=== PATIENT | male | born 1945 | race Caucasian/White ===

== ENCOUNTER → 2020-12-31 00:25 | Outpatient (CLI) | payer MEDICARE, SELFPAY ==
[2020-12-31 18:31] LABS: SARS-CoV-2 RNA PCR Negative
== END ==
PROVIDERS: PCP Internal Medicine; Visit Provider Internal Medicine Gastroenterology
DX: Z01.812 Encounter for preprocedural laboratory examination (principal); Z20.822 Contact with and (suspected) exposure to COVID-19
CPT/HCPCS: C9803; U0003; U0005

== ENCOUNTER 2021-01-03 04:38 | Day surgery (SDC) | payer MEDICARE, SELFPAY ==
[2020-12-24 10:42] VITALS: BMI 31.1
[2021-01-03 08:45] VITALS: BP 136/80; PULSE 68; RESP 20; TEMP 35.9; O2SAT 98; BMI 29.7
--- NOTE | 2021-01-03 08:52 | WPDANESEPPF ---
Anes - Initial Pre Proc Eval Procedure: Operation Date: 01/03/21 10:00 Proposed Procedures p Screening Colonoscopy - Edgar Jones MD Date/Time: 01/03/21 08:52 Surgeon: Edgar Jones MD Pre Op Diagnosis: neoplasm screening Patient Data Age: 75 Gender: M Height: 5 ft 7 in Weight: 86.3 kg Last Vital Signs Temp 96.6 F L 01/03/21 08:45 Pulse 68 01/03/21 08:45 Resp 20 01/03/21 08:45 BP 136/80 01/03/21 08:45 Pulse Ox 98 01/03/21 08:45 Allergies Allergy/AdvReac Type Severity Reaction Status Date / Time No Known Allergies Allergy Verified 12/24/20 10:42 Home Medications Medication Instructions Recorded Confirmed Type docusate sodium 100 mg capsule 100 mg PO BID 07/22/20 12/24/20 History glucosamine HCl 500 mg tablet 600 mg PO BID tablet 07/22/20 12/24/20 History atorvastatin 10 mg tablet 10 mg PO DAILY #90 tablet 07/25/20 12/24/20 Rx levothyroxine 75 mcg tablet 75 mcg PO DAILY #90 tablet 07/25/20 12/24/20 Rx losartan 25 mg tablet 25 mg PO DAILY #90 tablet 07/25/20 12/24/20 Rx tamsulosin 0.4 mg capsule 0.4 mg PO DAILY #90 cap 07/29/20 12/24/20 Rx hydrocortisone-pramoxine 2.5 %-1 % 1 applic RECTAL QID PRN #30 g 12/18/20 12/24/20 Rx rectal cream Patient hx anesthesia problems: none Family hx anesthesia problems: none PMFSH Past Medical History Medical History (Updated 07/19/20 @ 12:08 by Haylee Funes) Benign prostatic hyperplasia with urinary hesitancy DM w/o complication type II, uncontrolled Essential hypertension Hemospermia Hesitancy of micturition Hyperlipemia Hypogonadism Hypothyroidism, acquired Incomplete tear of left rotator cuff Thrombocytopenia Vitamin D deficiency Surgical History Surgical History (Updated 07/19/20 @ 12:08 by Haylee Funes) History of shoulder surgery 10/2018 Family History Family History (Updated 09/08/18 @ 13:07 by DOCTOR UNKNOWN) Mother Family history of Alzheimer's disease Family history of malignant neoplasm Social History Social History Smoking status: Never smoker Alcohol intake: never Substance use: never Substance use type: does not use Living arrangements: with family Spiritual care concerns: No Anes - Eval Final PreProcedure Day of Procedure 01/03/21 08:52 Patient weight: overweight Heart: regular rate and rhythm Lungs: clear to auscultation Airway: Mallampati scale class II Neurological: alert and oriented Last oral intake: >/= 8 hours ASA classification: III Emergent: no Anesthetic plan: proceed Anesthesia type and monitoring: general GIVS and standard monitoring Informed Consent: The patient's anesthetic plan and its attendant risks and benefits were discussed with the patient/family/POA. Questions were solicited and answers provided to the satisfaction of the patient/family/POA.
[2021-01-03] MEDS: LACTATED RINGERS 1,000 ML 150 ML IV CONT (09:04)
--- NOTE | 2021-01-03 09:44 | PM.HPGS ---
History of Present Illness History of Present Illness Consent: Risks, benefits, and alternatives have been discussed and questions answered. Patient agrees to proceed with procedure. Chief complaint: neoplasm screening Narrative: Alo Yousif is a 75 year old male referred for colon cancer screening. He has recently noticed painful bowel movements. Taking stool softener has helped a bit. The pain has been present for about 3 weeks. Occasionally he will also see some blood on toilet tissue Review of Systems Review of Systems: All systems reviewed & are unremarkable except as noted in HPI and below PMFSH Past Medical History Medical History Benign prostatic hyperplasia with urinary hesitancy DM w/o complication type II, uncontrolled Essential hypertension Hemospermia Hesitancy of micturition Hyperlipemia Hypogonadism Hypothyroidism, acquired Incomplete tear of left rotator cuff Thrombocytopenia Vitamin D deficiency Surgical History Surgical History History of shoulder surgery 10/2018 Family History Family History Mother Family history of Alzheimer's disease Family history of malignant neoplasm Social History Social History Smoking status: Never smoker Alcohol intake: never Substance use: never Substance use type: does not use Living arrangements: with family Spiritual care concerns: No Meds Home Medications and Allergies Home Medications Medication Instructions Recorded Confirmed Type docusate sodium 100 mg capsule 100 mg PO BID 07/22/20 12/24/20 History glucosamine HCl 500 mg tablet 600 mg PO BID tablet 07/22/20 12/24/20 History atorvastatin 10 mg tablet 10 mg PO DAILY #90 tablet 07/25/20 12/24/20 Rx levothyroxine 75 mcg tablet 75 mcg PO DAILY #90 tablet 07/25/20 12/24/20 Rx losartan 25 mg tablet 25 mg PO DAILY #90 tablet 07/25/20 12/24/20 Rx tamsulosin 0.4 mg capsule 0.4 mg PO DAILY #90 cap 07/29/20 12/24/20 Rx hydrocortisone-pramoxine 2.5 %-1 % 1 applic RECTAL QID PRN #30 g 12/18/20 12/24/20 Rx rectal cream Allergies Allergy/AdvReac Type Severity Reaction Status Date / Time No Known Allergies Allergy Verified 12/24/20 10:42 Vital Signs Vital Signs - 24 hr 01/03/21 08:45 Temperature 35.9 C L Pulse Rate 68 Respiratory Rate 20 Blood Pressure 136/80 Pulse Oximetry 98 Exam Resp: Auscultation: clear to auscultation bilaterally Cardio: Rate: regular rate Rhythm: regular rhythm GI: GI Palp: Yes Soft to palpation and No Tenderness to palpation present (GI) Assessment and Plan Assessment and plan (1) Colon cancer screening: Code(s): Z12.11 - Encounter for screening for malignant neoplasm of colon Status: Acute Assessment and Plan: Colonoscopy with possible biopsy or polypectomy or cautery or injection of substances.
[2021-01-03 10:04] VITALS: BP 88/48; PULSE 69; RESP 17; O2SAT 96
[2021-01-03 10:14] VITALS: BP 98/51; PULSE 64; RESP 16; O2SAT 98
[2021-01-03 10:24] VITALS: BP 118/76; PULSE 56; RESP 15; O2SAT 98
== END 2021-01-03 10:40 | disposition home or self-care (01) ==
PROVIDERS: PCP Internal Medicine; Visit Provider Internal Medicine Gastroenterology
PROC: 0DJD8ZZ Inspection of Lower Intestinal Tract, Via Natural or Artificial Opening Endoscopic (ICD-10-PCS; CPT 45378; principal; 2021-01-03 10:00)
DX: Z12.11 Encounter for screening for malignant neoplasm of colon (principal); K64.8 Other hemorrhoids; N40.0 Benign prostatic hyperplasia without lower urinary tract symptoms; I10 Essential (primary) hypertension; D69.6 Thrombocytopenia, unspecified; E03.9 Hypothyroidism, unspecified; E55.9 Vitamin D deficiency, unspecified; E11.9 Type 2 diabetes mellitus without complications
CPT/HCPCS: G0121; C9803; J2001; J2704; J7120; U0003; U0005

== ENCOUNTER 2021-02-07 09:12 | Outpatient (CLI) | payer MEDICARE, SELFPAY ==
--- NOTE | ~2021-02-07 | US_ITS ---
EXAMINATION: US abdomen complete EXAM DATE: 02/07/2021 09:58 INDICATION: Thrombocytopenia. TECHNIQUE: Multiple grayscale and Doppler images of the complete abdomen were obtained (by a technolo gist who performed the scan) and subsequently reviewed. There is no prior study for comparison. FINDINGS: The abdominal aorta is normal in caliber. Visualized portion IVC is patent. The pancreatic head a nd body are normal in appearance. The pancreatic tail is not visualized. The liver has normal echogenicity and contour. There are no focal liver lesions identified. There is no evidence of intrahepatic biliary duct dilation. Portal venous flow was seen in the hepatopedal , normal direction and has normal Doppler waveform. Common bile duct measures 3 mm, which is normal. The gallbladder wall is normal in thickness, with ex pected amount of distention. No sonographic evidence of pericholecystic fluid. There are several ga llstones identified. Technologist performing exam reports patient did not demonstrate sonographic Mu rphy's sign. Please note that this sign is less reliable in patients who have received pain medicati on. Right kidney: There is normal contour and echogenicity. It measures 10.9 x 5.2 x 5.8 centimeters. T here are 2 anechoic regions consistent with cysts largest measuring 3.7 cm. There is no hydronephro sis. Left kidney: There is normal contour and echogenicity. It measures 11.7 x 6.7 x 5.6 centimeters. T here are no focal renal lesions identified. There is no hydronephrosis. The spleen measures 10.4 centimeters and is morphologically normal. IMPRESSION: 1. Cholelithiasis. 2. Normal spleen size. Reviewed, dictated and finalized at location B.
== END 2021-02-07 09:13 | disposition home or self-care (01) ==
PROVIDERS: PCP Internal Medicine; Visit Provider Internal Medicine Hematology & Oncology
DX: D69.59 Other secondary thrombocytopenia (principal); K80.20 Calculus of gallbladder without cholecystitis without obstruction
CPT/HCPCS: 76700

== ENCOUNTER 2021-03-27 12:40 | Outpatient (CLI) | payer MEDICARE, SELFPAY ==
--- NOTE | 2021-03-27 12:46 | ECG_ITS ---
Measurements Intervals Turner Rate: 67 P: 52 WI: 167 QRS: 0 QRSD: 94 T: 8 QT: 392 QTc: 416 Interpretive Statements SINUS RHYTHM BASELINE ARTIFACT- I, II, AVR NORMAL ECG Electronically Signed On 03-27-2021 13:00:37 CDT by Girma Ly D.O.
== END 2021-03-27 12:41 | disposition home or self-care (01) ==
LOC: ANHSURGERY 12:43
PROVIDERS: PCP Internal Medicine; Visit Provider Surgery
DX: Z01.818 Encounter for other preprocedural examination (principal); E78.00 Pure hypercholesterolemia, unspecified
CPT/HCPCS: 93005

== ENCOUNTER 2021-04-01 01:47 | Day surgery (SDC) | payer MEDICARE, SELFPAY ==
[2021-03-26 12:25] VITALS: BMI 29.7
[2021-04-01] VITALS (7 sets, daily range): BP systolic 118–144; BP diastolic 65–72; PULSE 64–99; RESP 10–18; TEMP 36.3–36.6; O2SAT 98–100
[2021-04-01] MEDS: ACETAMINOPHEN 500 MG TABLET 1000 MG PO (10:19)
[2021-04-01] MEDS: LACTATED RINGERS 1,000 ML 30 ML IV CONT (10:19)
[2021-04-01] MEDS: KETOROLAC 15 MG/ML VIAL (*BKC) IV PUSH (10:19)
--- NOTE | 2021-04-01 11:22 | WPDANESEPPF ---
Anes - Initial Pre Proc Eval Procedure: Operation Date: 04/01/21 12:00 Proposed Procedures p Rectal/Anal Exam Under Anesthesia, Possible Lateral Internal Sphincterotomy - Corwin Agee MD Date/Time: 04/01/21 11:22 Surgeon: Corwin Agee MD Pre Op Diagnosis: posterior anal fissure Patient Data Age: 75 Gender: M Height: 1.7 m Weight: 85.1 kg Last Vital Signs Temp 97.9 F 04/01/21 10:45 Pulse 70 04/01/21 10:45 Resp 16 04/01/21 10:45 BP 144/72 H 04/01/21 10:45 Pulse Ox 100 04/01/21 10:45 Allergies Allergy/AdvReac Type Severity Reaction Status Date / Time No Known Allergies Allergy Verified 04/01/21 10:43 Home Medications Medication Instructions Recorded Confirmed Type levothyroxine 75 mcg tablet 75 mcg PO DAILY #90 tablet 07/25/20 04/01/21 Rx atorvastatin 10 mg tablet 10 mg PO DAILY #90 tablet 01/24/21 04/01/21 Rx losartan 25 mg tablet 25 mg PO DAILY #90 tablet 01/24/21 04/01/21 Rx tamsulosin 0.4 mg capsule 0.4 mg PO DAILY #90 cap 01/24/21 04/01/21 Rx cholecalciferol (vitamin D3) 50 50 mcg PO DAILY 03/12/21 04/01/21 History mcg (2,000 unit) capsule docusate sodium 100 mg capsule 250 mg PO BID cap 03/12/21 04/01/21 History glucosamine HCl 500 mg tablet 750 mg PO BID tablet 03/12/21 04/01/21 History mecobalamin (vitamin B12) 1,000 1,000 mcg PO DAILY 03/12/21 04/01/21 History mcg chewable tablet omega-3 fatty acids 1,000 mg 1,000 mg PO DAILY 03/12/21 04/01/21 History capsule Patient hx anesthesia problems: none Family hx anesthesia problems: none PMFSH Past Medical History Medical History Benign prostatic hyperplasia with urinary hesitancy DM w/o complication type II, uncontrolled Pt stated he doesn't have DM on 01/15/21 [place] Essential hypertension Hemospermia Hesitancy of micturition Hyperlipemia Hypogonadism Hypothyroidism, acquired Incomplete tear of left rotator cuff Thrombocytopenia Vitamin D deficiency Surgical History Surgical History H/O partial thyroidectomy 2006 History of shoulder surgery 10/2018 History of tonsillectomy 195 Family History Family History Mother Family history of Alzheimer's disease Breast cancer Social History Social History Smoking status: Never smoker Second hand tobacco smoke exposure: No Alcohol intake: never Substance use: never Substance use type: does not use Living arrangements: with family Spiritual care concerns: No Anes - Eval Final PreProcedure Day of Procedure 04/01/21 11:22 Patient weight: obese Heart: regular rate and rhythm Lungs: clear to auscultation Airway: Mallampati scale class II Neurological: alert and oriented Last oral intake: >/= 8 hours ASA classification: III Emergent: no Anesthetic plan: proceed Anesthesia type and monitoring: general ETT and standard monitoring Informed Consent: The patient's anesthetic plan and its attendant risks and benefits were discussed with the patient/family/POA. Questions were solicited and answers provided to the satisfaction of the patient/family/POA.
--- NOTE | 2021-04-01 11:48 | WPDHPUPDATE1 ---
History and Physical Update Update Date/Time: 04/01/21 11:48 History and Physical has been reviewed, including an updated exam of the patient. There are changes in the patient's condition. The pt went on a liquid diet on Sun. in order to avoid hard stools after surgery. Risks, benefits, and alternatives have been discussed and questions answered. Patient agrees to proceed with procedure.
[2021-04-01] MEDS: BUPIVACAINE/EPINEPHRINE 0.5% 10 ML VIAL 30 ML INFILTRATE (12:26)
--- NOTE | 2021-04-01 13:12 | P.OP_ITS ---
Procedure Note - Detailed Date of Procedure 04/01/21 Pre-op Diagnosis posterior anal fissure Post-op Diagnosis other (2. Bleeding internal hemorrhoids) Procedure Performed 1. left internal lateral sphincterotomy 2. examination under anesthesia (ano-rectal) 3. rubber-band ligation of internal hemorrhoids x2 Surgeon Corwin Agee MD Food Cart Attendant [place] engineering inspection assistant. Anesthesia general Indications The patient has had more than 3 months of a persistent chronic posterior anal fissure. Findings 1. posterior anal fissure 2. Grade 3 internal hemorrhoid complex with signs of recent bleeding left lateral position, grade 2 internal hemorrhoid right anterior position. Description of Procedure patient was brought to the operating room and after induction of general endotracheal anesthesia he was placed in lithotomy position. Time-out was performed with the OR staff confirming patient site of surgery being anorectal area. Following this examination under anesthesia was performed. First examination were externally revealed a external hemorrhoid small anteriorly. Following this digital rectal examination revealed a slip somewhat tight sphincter. Only 1 index finger could easily be inserted with the Blake a alaniz. Following this the small structure protractor was carefully liver gated and slid into place. I circumferentially inspected the anal area and there were grade 2 and 3 internal hemorrhoids at the left lateral and right anterolateral position. There was a definite opening and wound posteriorly consistent with a an anal fissure. Following this while we had a nice retraction I went ahead and placed were band ligation on both the left lateral and right anterolateral internal hemorrhoidal complexes. No further bleeding after these were applied. Following this I then placed local anesthetic in the skin in the left lateral position and then also in the intersphincteric groove. Following this using a 12 blade knife I did a standard left lateral internal sphincterotomy by making a small incision inserting the 12 blade in the intersphincteric groove and then making an incision through the a gritty internal sphincter muscle up to it just underlying the mucosa without coming through the mucosa. a knife was removed and then pressure applied to the small incision on the anal rectal margin at the lateral side for about 1 minutes hemostasis was thereby achieved 2 sterile cotton balls were applied to the anal opening and a piece a tape. Estimated blood loss less than 5 cc Patient tolerated procedure well. Implants none Estimated Blood Loss 5 Drains No Packing No Pathology none sent Complications No immediate complications Condition stable Disposition PACU
== END 2021-04-01 14:25 | disposition home or self-care (01) ==
PROVIDERS: PCP Internal Medicine; Visit Provider Surgery
PROC: (CPT 46080; principal; 2021-04-01 12:00)
DX: K60.2 Anal fissure, unspecified (principal); K64.2 Third degree hemorrhoids; K64.1 Second degree hemorrhoids; N40.1 Benign prostatic hyperplasia with lower urinary tract symptoms; I10 Essential (primary) hypertension; E11.9 Type 2 diabetes mellitus without complications; E78.5 Hyperlipidemia, unspecified; E03.9 Hypothyroidism, unspecified; E55.9 Vitamin D deficiency, unspecified; D47.3 Essential (hemorrhagic) thrombocythemia; E66.9 Obesity, unspecified; Z68.29 Body mass index [BMI] 29.0-29.9, adult
CPT/HCPCS: 46080; 93005; A9270; J1200; J1885; J2370; J2405; J2704; J3010; J7120; Q9968

== ENCOUNTER 2022-07-24 09:06 | Outpatient (CLI) | payer MEDICARE, SELFPAY ==
[2022-07-24 19:47] LABS: Basophils Absolute Auto 0.1 K/mm3 (0.0-0.1); Eosinophils Absolute Auto 0.3 K/mm3 (0-0.3); Eosinophils Percent Auto 3.5 % (0-4.4); Hematocrit 40.9 % (42.0-52.0); Hemoglobin 13.7 g/dL (14.0-18.0); Immature Granulocyte Absolute 0.01 K/mm3 (0.00-0.031); Immature Granulocyte Percent A 0.1 % (0-0.5); Immature Platelet Fraction Pct 6.3 % (0.9-11.2); Lymphocytes Absolute Auto 1.01 K/mm3 (0.9-3.2); Lymphocytes Percent Auto 14.2 % (18.3-44.2); Mean Corpuscular HGB Conc 33.5 g/dl (32-36); Mean Corpuscular Hemoglobin 32.1 pg (26-34); Mean Corpuscular Volume 95.8 fl (80-100); Mean Platelet Volume 11.4 fl (7.4-10.4); Monocytes Absolute Auto 0.5 K/mm3 (0.1-0.6); Monocytes Percent Auto 7.3 % (2.6-8.5); Neutrophils Absolute Auto 5.2 K/mm3 (1.3-6.7); Neutrophils Percent Auto 73.9 % (45.5-73.1); Platelet Count Result 104 k/mm3 (150-375); Red Blood Count 4.27 M/mm3 (4.6-6.20); Red Cell Distribution Width 12.9 % (11.5-14.5); White Blood Count 7.1 K/mm3 (4.5-10.0)
[2022-07-24 19:52] LABS: Alanine Aminotransferase 21 U/L (6-50); Albumin Level 4.1 g/dL (3.5-5.1); Alkaline Phosphatase 60 U/L (38-126); Anion Gap 10 mmol/L (8-16); Aspartate Amino Transferase 20 U/L (17-59); Bilirubin,Total 0.5 mg/dL (0.2-1.3); Blood Urea Nitrogen 17 mg/dL (9-20); Calcium 9.1 mg/dL (8.4-10.2); Carbon Dioxide 23 mmol/L (22-30); Chloride 110 mmol/L (98-107); Cholesterol 142 mg/dL (0-200); Estimated Glomerular Filt Rate > 60; Glucose 102 mg/dL (65-110); HDL Direct 36 mg/dL; Potassium 4.2 mmol/L (3.4-5.0); Sodium 143 mmol/L (137-145); Triglycerides 108 mg/dL (<150)
[2022-07-24 20:07] LABS: LDL Cholesterol Direct 83 mg/dL
[2022-07-24 20:11] LABS: Hemoglobin A1C 5.4 % (<5.7); Vitamin D 25 Hydroxy 40.4 ng/mL
[2022-07-24 20:26] LABS: Prostate Specific Antigen 1.5 ng/mL (< OR = 4.0)
== END 2022-07-24 09:07 | disposition home or self-care (01) ==
LOC: ANHGOSHLAB 09:07
PROVIDERS: PCP Internal Medicine; Visit Provider Clinical Nurse Specialist
DX: D69.6 Thrombocytopenia, unspecified (principal); I10 Essential (primary) hypertension; R73.9 Hyperglycemia, unspecified; E78.5 Hyperlipidemia, unspecified; Z12.5 Encounter for screening for malignant neoplasm of prostate; E03.9 Hypothyroidism, unspecified; E53.8 Deficiency of other specified B group vitamins; E55.9 Vitamin D deficiency, unspecified
CPT/HCPCS: 36415; 80053; 80061; 82306; 82607; 83036; 84153; 84443; 85025; 85055; G0103

== ENCOUNTER 2022-08-10 08:24 | Outpatient (CLI) | payer MEDICARE, SELFPAY ==
[2022-08-10 09:29] LABS: Basophils Absolute Auto 0.1 K/mm3 (0.0-0.1); Basophils Percent Auto 0.7 % (0.2-1.2); Eosinophils Absolute Auto 0.3 K/mm3 (0-0.3); Eosinophils Percent Auto 4.7 % (0-4.4); Hematocrit 39.2 % (42.0-52.0); Hemoglobin 13.9 g/dL (14.0-18.0); Immature Granulocyte Absolute 0.02 K/mm3 (0.00-0.031); Immature Granulocyte Percent A 0.3 % (0-0.5); Lymphocytes Absolute Auto 1.21 K/mm3 (0.9-3.2); Lymphocytes Percent Auto 17.8 % (18.3-44.2); Mean Corpuscular HGB Conc 35.5 g/dl (32-36); Mean Corpuscular Hemoglobin 32.1 pg (26-34); Mean Corpuscular Volume 90.5 fl (80-100); Mean Platelet Volume 10.7 fl (7.4-10.4); Monocytes Absolute Auto 0.5 K/mm3 (0.1-0.6); Monocytes Percent Auto 7.1 % (2.6-8.5); Neutrophils Absolute Auto 4.7 K/mm3 (1.3-6.7); Neutrophils Percent Auto 69.4 % (45.5-73.1); Red Blood Count 4.33 M/mm3 (4.6-6.20); Red Cell Distribution Width 12.2 % (11.5-14.5); White Blood Count 6.8 K/mm3 (4.5-10.0)
[2022-08-10 09:47] LABS: Platelet Count Result 81 k/mm3 (150-375)
[2022-08-10 11:25] LABS: Alanine Aminotransferase 19 U/L (6-50); Albumin Level 4.2 g/dL (3.5-5.1); Alkaline Phosphatase 56 U/L (38-126); Anion Gap 11 mmol/L (8-16); Aspartate Amino Transferase 21 U/L (17-59); Bilirubin,Total 0.5 mg/dL (0.2-1.3); Blood Urea Nitrogen 14 mg/dL (9-20); Calcium 8.4 mg/dL (8.4-10.2); Carbon Dioxide 22 mmol/L (22-30); Chloride 108 mmol/L (98-107); Estimated Glomerular Filt Rate > 60; Glucose 97 mg/dL (65-110); Potassium 3.9 mmol/L (3.4-5.0); Sodium 141 mmol/L (137-145)
[2022-08-10 12:31] LABS: Folic Acid 18.8 ng/mL (2.76->20)
== END 2022-08-10 08:25 | disposition home or self-care (01) ==
LOC: ANHLAB 08:25
PROVIDERS: PCP Internal Medicine; Visit Provider Internal Medicine Hematology & Oncology
DX: D69.59 Other secondary thrombocytopenia (principal)
CPT/HCPCS: 36415; 80053; 82607; 82746; 85025

== ENCOUNTER 2023-03-24 13:07 | Emergency (ER) | payer MEDICARE, SELFPAY ==
--- NOTE | ~2023-03-24 | XR_ITS ---
EXAM: XR abdomen/kub 1V DATE: 03/24/2023 14:01 HISTORY: right sided flank pain/hematuria . COMPARISON: CT abdomen 07/18/2015; ultrasound abdomen 02/07/2021. FINDINGS: Clear lung bases. Normal bowel gas pattern. No organomegaly. Round calcifications project over the right upper quadrant, likely gallstones. No definite renal calcification detected. Mild athe rosclerotic vascular calcification. Lumbar degenerative disc disease. Mild bilateral hip osteoarthrit is. IMPRESSION: No radiographic evidence of nephrolithiasis, ileus, or obstruction. Cholelithiasis. Reviewed, dictated and finalized at location K.
[2023-03-24 13:17] VITALS: BP 117/65; PULSE 88; RESP 16; TEMP 36.9; O2SAT 97
--- NOTE | 2023-03-24 13:23 | ED.BACK ---
HPI - Back Pain/Injury General Chief Complaint: Back Pain/Injury Stated Complaint: R SIDE BACK PAIN Time Seen by Provider: 03/24/23 13:27 Source: patient and RN notes reviewed Mode of arrival: ambulatory Limitations: no limitations History of Present Illness HPI Narrative: 77-year-old male presents with concern for right low back pain he reports the pain is intermittent, he currently has no pain. He reports when he has pain it feels like a sharp pain, spasming. He reports when he has the pain it does hurt worse to bend over or twists. He reports when he does not have the pain it does not hurt worse to bend over or twists. He denies dysuria, frequency, urgency, hematuria. He denies body aches, chills, sweats, abdominal pain, nausea or vomiting. He denies rash. MD elicited complaint: back pain Related Data Home Medications Medication Instructions Recorded Confirmed cholecalciferol (vitamin D3) 50 50 mcg PO DAILY 03/12/21 03/24/23 mcg (2,000 unit) capsule docusate sodium 100 mg capsule 250 mg PO BID 03/12/21 03/24/23 (Colace) glucosamine HCl 500 mg tablet 750 mg PO BID 03/12/21 03/24/23 mecobalamin (vitamin B12) 1,000 1,000 mcg PO DAILY 03/12/21 03/24/23 mcg chewable tablet Allergies Allergy/AdvReac Type Severity Reaction Status Date / Time No Known Allergies Allergy Verified 07/24/22 08:04 Review of Systems Review of Systems: CONSTITUTIONAL: Denies malaise, chills, sweats, or fever. CARDIOVASCULAR: Denies chest pain, palpitations, or edema. RESPIRATORY: Denies cough or dyspnea. GASTROINTESTINAL: Denies abdominal pain, nausea, vomiting, diarrhea GENITOURINARY: Denies dysuria, frequency, urgency, suprapubic pressure. Denies hematuria. SKIN: Denies rash or itching. MUSCULOSKELETAL: Reports intermittent right spasming back pain. Denies myalgia. All systems reviewed & are unremarkable except as noted in HPI and below PMFSH Past Medical History Medical History (Updated 03/24/23 @ 14:23 by Tonja Ford NP) Benign prostatic hyperplasia with urinary hesitancy DM w/o complication type II, uncontrolled Pt stated he doesn't have DM on 01/15/21 [place] Essential hypertension Hemospermia Hesitancy of micturition Hyperlipemia Hypogonadism Hypothyroidism, acquired Incomplete tear of left rotator cuff Thrombocytopenia Vitamin D deficiency Surgical History Surgical History H/O partial thyroidectomy 2006 H/O rectal sphincterotomy left internal lateral sphincterotomy, examination under anesthesia, rubber-band ligation of internal hemorrhoids x2 on 04/01/2021 History of shoulder surgery 10/2018 History of tonsillectomy 195 Family History Family History Mother Family history of Alzheimer's disease Breast cancer Social History Social History Smoking status: Never smoker Second hand tobacco smoke exposure: No Alcohol intake: never Substance use: never Substance use type: does not use Living arrangements: with family Occupation/Education: retired Spiritual care concerns: No Comments At time of signature, agree with nursing past medical, surgical, social and family history. There is no relevant family history pertinent to the presenting complaint Exam Narrative: GENERAL: Well-appearing, well-nourished, and in no acute distress. HEAD: Normocephalic, atraumatic. EYES: PERRLA and EOMI. NECK: Supple. No lymphadenopathy. CHEST: Clear to auscultation. No respiratory distress. HEART: Regular rate and rhythm. Distal pulses palpable and equal, cap refill <3 seconds ABDOMEN: No CVA tenderness MUSCULOSKELETAL: Normal range of motion and strength in all extremities. Grossly Normal sensation in dermatomal distributions with sensitivity to light touch. No midline back tenderness to palpation. No paraspinal tenderness.
== END 2023-03-24 14:26 | disposition home or self-care (01) ==
PROVIDERS: Emergency Provider Nurse Practitioner; PCP Internal Medicine
DX: R10.9 Unspecified abdominal pain (principal); N40.1 Benign prostatic hyperplasia with lower urinary tract symptoms; R39.11 Hesitancy of micturition; E11.9 Type 2 diabetes mellitus without complications; I10 Essential (primary) hypertension; E78.5 Hyperlipidemia, unspecified; E03.9 Hypothyroidism, unspecified; E55.9 Vitamin D deficiency, unspecified
CPT/HCPCS: 74018; 81003; 99213; G0463

== ENCOUNTER 2025-09-17 11:22 | Emergency (ER) | payer MEDICARE, SELFPAY ==
--- NOTE | ~2025-09-17 | XR_ITS ---
EXAMINATION: XR knee RT 3V, 09/17/2025 12:03 [employer] HISTORY: posterior Rt knee pain x1 month after 3 injuries COMPARISON: No comparisons available. Findings: No acute fracture or malalignment. No significant degenerative changes. Soft tissues unremarkable. Impression: No acute fracture or malalignment. Reviewed, dictated and finalized at location P. [employer] Impression: No acute fracture or malalignment.
[2025-09-17 11:32] VITALS: BP 116/69; PULSE 90; RESP 16; TEMP 36.5; O2SAT 98
--- NOTE | 2025-09-17 11:55 | ED.LOWEXIN ---
HPI - Extremity Injury (Lower) General Chief Complaint: Extremity Injury, Lower Stated Complaint: R Knee Pain Time Seen by Provider: 09/17/25 11:40 Source: patient, family () and RN notes reviewed Mode of arrival: ambulatory Limitations: no limitations History of Present Illness HPI Narrative: 79-year-old male patient presents today complaining right posterior knee pulling and tightness. Patient's injured his knee 3 times since the beginning of August after falling twice, and falling into a hole. Denies numbness or tingling in the leg or foot. Denies pain. He has tried heat with some intermittent improvement. Reports increase in symptoms with weight-bearing. No OTC medications for symptoms prior to arrival. Related Data Home Medications ?Medication ?Instructions ?Recorded ?Confirmed ?Last Taken ?Type cholecalciferol (vitamin D3) 50 50 mcg PO DAILY 03/12/21 08/22/25 Unknown History mcg (2,000 unit) capsule docusate sodium 100 mg capsule 250 mg PO BID 03/12/21 08/22/25 Unknown History (Colace) glucosamine HCl 500 mg tablet 750 mg PO BID 03/12/21 08/22/25 Unknown History mecobalamin (vitamin B12) 1,000 1,000 mcg PO DAILY 03/12/21 08/22/25 Unknown History mcg chewable tablet Allergies Allergy/AdvReac Type Severity Reaction Status Date / Time No Known Allergies Allergy Verified 09/17/25 11:24 [facility] Past Medical History Medical History Hypogonadism Hypothyroidism, acquired Benign prostatic hyperplasia with urinary hesitancy Essential hypertension Hemospermia Hesitancy of micturition Hyperlipemia Incomplete tear of left rotator cuff Thrombocytopenia DM w/o complication type II, uncontrolled Pt stated he doesn't have DM on 01/15/21 [place] Vitamin D deficiency Surgical History Surgical History H/O rectal sphincterotomy left internal lateral sphincterotomy, examination under anesthesia, rubber-band ligation of internal hemorrhoids x2 on 04/01/2021 History of tonsillectomy 1950 H/O partial thyroidectomy 2006 History of shoulder surgery 10/2018 Family History Family History Mother Family history of Alzheimer's disease Breast cancer Social History Social History Smoking status: Never smoker Second hand tobacco smoke exposure: No Alcohol intake: never Substance use: never Substance use type: does not use Lack of Transportation: No Lack of Food: Never True Current Housing: I Have Housing Concerned About Future Housing: No Difficulty Paying Gas/Electric Bills: No Difficulty Paying for Meds: No Currently Unemployed: No Education: Master's Degree or Higher Difficulty w/ Childcare or Family Care: No Living arrangements: with family Occupation/Education: retired Spiritual care concerns: No Comments At time of signature, I have reviewed and agree with nursing past medical, surgical, social and family history unless otherwise noted. Please see nursing chart for further information. There is no relevant family history pertinent to the presenting complaint Exam Narrative: GENERAL: Well-appearing, well-nourished, and in no acute distress. HEAD: Normocephalic, atraumatic. EYES: EOMI. No redness or drainage. Conjunctivae normal. ENT: Mucous membranes pink and moist. NECK: Normal AROM. CHEST: No respiratory distress. Clear to auscultation. HEART: Regular rate and rhythm. No murmur appreciated. EXTREMITIES: Right knee: Entirety of the knees nontender. No edema, erythema, ecchymosis. No pain with active range of motion in all directions. Distal sensation intact. Capillary refill. SKIN: Warm, dry, no rash. Capillary refill normal. Normal skin turgor. NEURO: No focal deficits. Alert and oriented x3. Gait steady. PSYCH: Normal affect. No signs of depression or anxiety. Course Course Level of Care: Express Care Visit Vital Signs Vital signs: Vital Signs Temperature 97.7 F 09/17/25 11:32 Pulse Rate 90 09/17/25 11:32 Respiratory Rate 16 09/17/25 11:32 Blood Pressure 116/69 09/17/25 11:32 Pulse Oximetry 98 09/17/25 11:32 Temperature 97.7 F 09/17/25 11:32 Pulse Rate 90 09/17/25 11:32 Respiratory Rate 16 09/17/25 11:32 Blood Pressure 116/69 09/17/25 11:32 Pulse Oximetry 98 09/17/25 11:32 Reviewed MDM MDM Narrative Medical decision making narrative: 79-year-old male patient presents today complaining right posterior knee pulling and tightness. Patient's injured his knee 3 times since the beginning of August after falling twice, and falling into a hole. Denies numbness or tingling in the leg or foot. Denies pain. He has tried heat with some intermittent improvement. Reports increase in symptoms with weight-bearing. No OTC medications for symptoms prior to arrival. Upon exam, knee exam is normal. Knee x-ray negative. Recommend following up with PCP or orthopedics for further evaluation. Vital signs stable. Patient agrees with plan. Anticipatory guidance given. Differential Diagnosis Differential Diagnosis: Knee strain, ligamentous injury, meniscus injury Imaging Data Radiologist's impression: ITS Impressions Knee X-Ray 09/17/25 12:18 Impression: No acute fracture or malalignment. Critical Care Time Critical Care Time Critical Care Time: No Discharge Plan Discharge Clinical Impression: Injury of knee, right Qualifiers: Encounter type: initial encounter Qualified Code(s): S89.91XA - Unspecified injury of right lower leg, initial encounter Patient Disposition: Home Condition: Stable Instructions: Knee Pain (ED) Additional Instructions: Your x-ray is negative today. Please follow-up with either your PCP or orthopedics for further evaluation of your knee discomfort. Take Tylenol if needed. Rest and apply ice. Patient Language: Estonian Prescriptions: No Action cholecalciferol (vitamin D3) 50 mcg (2,000 unit) capsule 50 mcg PO DAILY mecobalamin (vitamin B12) 1,000 mcg tablet,chewable 1,000 mcg PO DAILY docusate sodium [Colace] 100 mg capsule 250 mg PO BID glucosamine HCl 500 mg tablet 750 mg PO BID Rx Instructions: administer with meals tamsulosin 0.4 mg capsule See Rx Instructions .ROUTE .COMPLEX Qty: 180 1RF Dose Instruction: TAKE 1 CAPSULE BY MOUTH ONCE DAILY IN THE EVENING DIRECTED Rx Instructions: TAKE 2 CAPSULE BY MOUTH ONCE DAILY IN THE EVENING DIRECTED atorvastatin 10 mg tablet See Rx Instructions .ROUTE .COMPLEX Qty: 90 1RF Dose Instruction: TAKE ONE TABLET BY MOUTH EVERY DAY Rx Instructions: TAKE ONE TABLET BY MOUTH EVERY DAY losartan 25 mg tablet 25 mg PO DAILY Qty: 90 1RF levothyroxine 75 mcg tablet See Rx Instructions .ROUTE .COMPLEX Qty: 90 1RF Dose Instruction: TAKE ONE TABLET (75mcg) BY MOUTH EVERY DAY Rx Instructions: TAKE ONE TABLET (75mcg) BY MOUTH EVERY DAY Follow-up/Referrals: Franc Dobbs MD [Physician, Orthopedics] Tate Hamilton DO [Primary Care Provider, Internal Medicine] Time of Disposition: 12:41
== END 2025-09-17 12:44 | disposition home or self-care (01) ==
PROVIDERS: Emergency Provider Nurse Practitioner; PCP Internal Medicine
DX: S89.91XA Unspecified injury of right lower leg, initial encounter (principal); W17.2XXA Fall into hole, initial encounter; I10 Essential (primary) hypertension; E03.9 Hypothyroidism, unspecified; E78.5 Hyperlipidemia, unspecified; D69.6 Thrombocytopenia, unspecified; E11.9 Type 2 diabetes mellitus without complications; E55.9 Vitamin D deficiency, unspecified; N40.1 Benign prostatic hyperplasia with lower urinary tract symptoms; Z90.89 Acquired absence of other organs
CPT/HCPCS: 73562; 99213; G0463